=== PATIENT | female | born 1990 | race Caucasian/White ===

== ENCOUNTER 2019-11-28 21:30 | Emergency (ER) | payer OTHER, SELFPAY ==
[2019-11-28 21:31] VITALS: BP 142/85; PULSE 74; RESP 16; TEMP 36.9; O2SAT 98; BMI 21.2
--- NOTE | 2019-11-28 21:49 | ED.VISSUMM ---
- ER Visit Summary Date of Service: 11/28/19 Chief Complaint: Head injury History of Present Illness: The patient is a 28 F who presents with a head injury that occurred yesterday. Patient states she slipped and fell and hit the left side of her head. Patient denies any loss of consciousness. Patient denies any paresthesias or weakness. Patient states her headache has been persistent today. Patient describes her pain as throbbing. Patient states the pain is localized to the left side of her head. Patient admits to some mild neck pain. Patient denies any back pain. Patient denies any other injuries. Physical Examination: Vital signs are stable. Patient is afebrile. Patient is in no acute distress. Cranial nerves II through XII are intact. Strength is 5/5 bilateral in the upper and lower extremities. There are no sensory deficits noted. Deep tendon reflexes are 2+/4 bilaterally in the upper and lower extremities. [id number] and ttjm-hp-[id number] are intact. Heart was regular rate and rhythm. Lungs are clear and equal bilaterally. Abdomen is soft and nontender. There is some mild tenderness over the left parietal area and left upper cervical paraspinal muscles. There is no midline tenderness. There is no bony crepitance or step-off. There is no tenderness of the thoracic or lumbar spine. Emergency Department Course and Treatment: Since the patient has normal neurologic exam, I do not feel a head CT is necessary at this time. Patient was instructed to take Tylenol or Motrin as needed for pain. Patient was instructed to drink plenty of fluids. Patient was instructed to follow-up with her primary care physician in 5 to 7 days. Patient understood and was agreeable with the plan. All questions were answered. Disposition: Discharge home Impression: Concussion This note was generated with [employer] dictation software. It may contain incorrect words, spelling, and punctuation that were not noted in review of the chart prior to signing ED Disposition - Plan for ED Patient: Disposition: Home or Assisted Living Diagnosis: Concussion Instructions: CONCUSSION, No Wake Up Referrals: Prakash Sanchez PA [Primary Care Provider] - 3-5 Days
== END 2019-11-28 22:01 | disposition home or self-care (01) ==
PROVIDERS: Emergency Provider Emergency Medicine; PCP Physician Assistant
DX: S06.0X0A Concussion without loss of consciousness, initial encounter (principal); W01.0XXA Fall on same level from slipping, tripping and stumbling without subsequent striking against object, initial encounter; Y93.9 Activity, unspecified; Y92.9 Unspecified place or not applicable
CPT/HCPCS: 99282

== ENCOUNTER 2021-04-05 19:15 | Observation (INO) | payer OTHER, SELFPAY ==
[2021-04-05 19:30] VITALS: BP 128/74; PULSE 72; PULSE 83; TEMP 36.8; O2SAT 100
[2021-04-05] MEDS: miSOPROStol 25 MCG TABLET VAGINAL (19:50)
[2021-04-05 19:53] LABS: Absolute Lymphocyte Count 1.73 X10^3/uL (0.83-4.51); Absolute Neutrophil Count 6.5 X10^3/uL (2.0-7.7); Basophil# 0.03 X10^3/uL; Basophil% 0.3 % (0-1); Eosinophil# 0.05 X10^3/uL; Eosinophils% 0.5 % (0-5); Hematocrit 35.2 % (37-47); Hemoglobin 11.9 g/dL (12.0-15.0); Lymphocyte # 1.73 X10^3/ul (0.83-4.51); Lymphocyte % 18.8 % (19-41); Mean Corp Hgb Conc 33.8 g/dL (32-36); Mean Corpuscular Hgb 32.7 pg (27.0-32.0); Mean Corpuscular Volume 96.7 fL (81-99); Mean Platelet Vol. 10.1 fl (6.2-12.0); Monocyte# 0.85 X10^3/uL; Monocyte% 9.2 % (0-10); NRBC Flagged by Analyzer 0 % (0-5); Neutrophil # 6.48 X10^3/uL (2.7-7.7); Neutrophil % 70.3 % (47-70); Platelet Count 194 K/mm3 (150-450); Red Blood Count 3.64 M/mm3 (4.2-5.4); White Blood Count 9.2 K/mm3 (4.4-11.0)
[2021-04-05 20:06] VITALS: BMI 26.2
--- NOTE | 2021-04-05 21:10 | NURSING ---
Pt received covid vaccine x2 doses per report.
[2021-04-06] VITALS (14 sets, daily range): BP systolic 110–142; BP diastolic 58–90; PULSE 63–93; TEMP 36.1–37.4; O2SAT 97–99
[2021-04-06] MEDS: miSOPROStol 25 MCG TABLET VAGINAL ×2 (00:01→04:13)
--- NOTE | 2021-04-06 08:57 | PCM.PN.OB ---
Subjective Subjective Patient seen at bedside. Resting comfortably. Reports mild cramping. Got some sleep through the night. Discussed placement of hoffman bulb and plans for induction. Questions answered. Objective Data Objective Data Vital Signs: Vital Signs Temp Pulse BP Pulse Ox 98.4 F 72 118/68 99 04/06/21 07:12 04/06/21 07:12 04/06/21 07:12 04/06/21 07:12 Weight: 153 lb Body Mass Index (BMI) 26.2 Intake & Output: Intake and Output for Last 24 Hours 04/04/21 04/05/21 04/06/21 23:59 23:59 23:59 Intake Total 1000 / 1000 Balance 1000 / 1000 Lab / Micro Data Result Diagrams: 04/05/21 19:44 Labs: Laboratory Results - last 24 hr 04/05/21 04/05/21 04/05/21 19:44 19:44 19:44 WBC 9.2 RBC 3.64 L Hgb 11.9 L Hct 35.2 L MCV 96.7 MCH 32.7 H MCHC 33.8 RDW Std Deviation 46.0 H RDW Coeff of Paresh 13.0 Plt Count 194 MPV 10.1 Immature Gran % (Auto) 0.900 Neut % (Auto) 70.3 H Lymph % (Auto) 18.8 L [place] % (Auto) 9.2 Eos % (Auto) 0.5 Baso % (Auto) 0.3 Absolute Neuts (auto) 6.5 Absolute Lymphs (auto) 1.73 Nucleated RBC % 0 Blood Type A NEGATIVE Cancelled ABO/Rh Cancelled A1 Subgroup Cancelled A1 Antigen Typing Cancelled Rho(D) Tech Interpret Cancelled Antibody Screen TNP NEGATIVE ROS Eyes Eyes: Denies blurry vision, change in vision or spots in vision ENT HEENT: Denies dizziness or headache(s) Cardiovascular Cardiovascular: Denies abdominal pain, chest pain or dyspnea Respiratory/Chest Respiratory/Chest: Denies cough, dyspnea, shortness of breath at rest or shortness of breath with exertion Gastrointestinal Gastrointestinal: Denies abdominal pain, diarrhea or vomiting Genitourinary Genitourinary: Denies change in urinary stream, difficulty urinating or dysuria Musculoskeletal Musculoskeletal: Reports none Integumentary Integumentary: Denies rash Neurologic Neurologic: Denies dizziness, headache(s), memory loss or weakness Psychiatric Psychiatric: Reports none Physical Exam Const alert and no apparent distress General Appearance: cooperative and comfortable Exam Limitations: no limitations HEENT normocephalic Eyes General Eye: normal appearance of both eyes Neck full ROM General: normal visual inspection Chest Chest: symmetrical chest wall rise Resp normal respiratory effort and normal air movement Effort and Inspection: symmetric chest movement Auscultation: clear to auscultation bilaterally Cardio regular rate and regular rhythm GI normal to inspection, nondistended, normoactive bowel sounds Back/Spine normal ROM Extremity full ROM and no calf tenderness General Extremity: normal exam except as noted Skin no rashes or lesions noted Neuro CN's II-XII intact bilaterally Psych mental status grossly normal NST FHR Rate Baby A Baseline: 120 Variability:: Moderate Accelerations:: 15 x 15 Decelerations:: None NST Reactive:: Yes FHR Category:: Category I Uterine Activity:: occasional Assessment & Plan (1) Encounter for induction of labor: (2) 39 weeks gestation of : (3) Elevated AFP: PLAN: Category 1 tracing NST reactive Placement of Hoffman bulb without difficulty Start Pitocin IV and titrate per policy Anticipate Dr. Torres updated and is collaborating physician
[2021-04-06] MEDS: 0.9% Normal Saline Single 100 ML IV.SOLN. INTRA-UTER (09:00)
[2021-04-06] MEDS: Oxytocin 30 units/NS 500 ml 30 UNITS/500 ML IV.SOLN IV (09:15)
[2021-04-06] MEDS: Lactated Ringers 1,000 ML 50 ML IV (09:15)
--- NOTE | 2021-04-06 14:39 | PCM.HP.OB ---
HPI - General General Date of Admission: 04/05/21 HPI Narrative SHANTI MCDOWELL, is a 30 F at 3. who presents at 39.1 weeks gestation for induction of labor for an elevated AFP during . Maternal Data Information STEFFANY Calculator Estimated Delivery Date Method Current WG Current Estimate 04/11/21 Manual 39w 2d PFSH PFSH Home Medications 04/05/21 [History Last Taken 04/05/21] aspirin [Baby Aspirin] 162 mg PO DAILY 04/05/21 [History Last Taken 04/05/21] ferrous sulfate [Iron (ferrous sulfate)] 325 mg QODAY 04/05/21 [History Last Taken 04/05/21] Allergy/AdvReac Type Severity Reaction Status Date / Time No Known Allergies Allergy Verified 04/05/21 20:07 Social History Smoking Status: Never smoker History Elective abortions Hx Para 0 Spontaneous abortions Hx # Term Pregnancies Ectopic pregnancies Hx # Pregnancies Multiple births # of living children NST FHR Rate Baby A Baseline: 125 Variability:: Moderate Accelerations:: 15 x 15 Decelerations:: None NST Reactive:: Yes FHR Category:: Category I Uterine Activity:: irregular/occasional ROS Eyes Eyes: Denies blurry vision, change in vision or spots in vision ENT HEENT: Denies dizziness or headache(s) Cardiovascular Cardiovascular: Denies abdominal pain, chest pain or dyspnea Respiratory/Chest Respiratory/Chest: Denies cough, dyspnea, shortness of breath at rest or shortness of breath with exertion Gastrointestinal Gastrointestinal: Denies abdominal pain, diarrhea or vomiting Genitourinary Genitourinary: Denies change in urinary stream, difficulty urinating or dysuria Musculoskeletal Musculoskeletal: Reports none Integumentary Integumentary: Denies rash Neurologic Neurologic: Denies dizziness, headache(s), memory loss or weakness Psychiatric Psychiatric: Reports none Vital Signs Vital Signs Vital Signs: 04/05/21 19:29 04/05/21 19:30 04/06/21 00:00 Temperature 98.2 F 98.1 F Temperature Source Temporal Temporal Pulse Rate 83 80 Blood Pressure 128/74 H 139/65 H BP Systolic 128 139 BP Diastolic 74 65 Pulse Ox 100 04/06/21 04:08 04/06/21 06:34 04/06/21 07:12 Temperature 97.5 F L 97.0 F L 98.4 F Temperature Source Temporal Temporal Temporal Pulse Rate 69 63 72 Blood Pressure 142/69 H 115/71 118/68 BP Systolic 142 115 118 BP Diastolic 69 71 68 Pulse Ox 98 99 04/06/21 09:21 04/06/21 10:54 04/06/21 11:56 Temperature Temperature Source Pulse Rate 93 70 71 Blood Pressure 137/90 H 120/61 130/58 H BP Systolic 137 120 130 BP Diastolic 90 61 58 Pulse Ox 98 04/06/21 13:01 04/06/21 14:06 Temperature 99.2 F H Temperature Source Temporal Pulse Rate 76 73 Blood Pressure 131/66 H 129/69 H BP Systolic 131 129 BP Diastolic 66 69 Pulse Ox 99 Weight Weight: 153 lb Body Mass Index (BMI) 26.2 Physical Exam Const alert, oriented x3 and no apparent distress General Appearance: cooperative Orientation / Consciousness: awake Exam Limitations: no limitations HEENT normocephalic Head and Scalp: normal to inspection Eyes General Eye: normal appearance of both eyes Neck full ROM and no lymphadenopathy Lymph Lymphatic: no lymphadenopathy noted Chest inspection of chest normal Resp normal respiratory effort, normal air movement and clear to auscultation bilaterally Effort and Inspection: able to speak in complete sentences and symmetric chest movement Cardio regular rate and regular rhythm GI normal to inspection, nondistended, normoactive bowel sounds Manual OB Exam: presentation cephalic, dilated 4, effaced 80 and station 0 Amniotic Fluid: clear amniotic fluid Back/Spine normal ROM Extremity full ROM and no calf tenderness Skin no rashes or lesions noted General Skin Exam: no breakdown Neuro oriented x3 and CN's II-XII intact bilaterally Psych mental status grossly normal and thought process normal Labs Labs Labs: Blood Type A NEGATIVE Antibody Screen NEGATIVE Hct 35.2 % (37-47) L Hgb 11.9 g/dL (12.0-15.0) L Rubella- Immune HB neg HC neg HIV- NR GBS neg Assessment & Plan (1) Elevated AFP: (2) 39 weeks gestation of : (3) Encounter for induction of labor: PLAN: Admit to labor and delivery for induction of labor Cytotec 25 mcg PO every 4 hours Croft bulb placement in the AM GBS negative Dr. Torres aware of induction and is collaborating physician
--- NOTE | 2021-04-06 14:44 | PN.OBGYN_ITS ---
Subjective Subjective Patient feeling contractions but rating them as mild. Croft bulb came out. Objective Data Objective Data CE-3/50/-3 per nursing Vital Signs: Vital Signs Temp Pulse BP Pulse Ox 99.2 F H 73 129/69 H 99 04/06/21 13:01 04/06/21 14:06 04/06/21 14:06 04/06/21 13:01 Weight: 153 lb Body Mass Index (BMI) 26.2 Intake & Output: Intake and Output for Last 24 Hours 04/04/21 04/05/21 04/06/21 23:59 23:59 23:59 Intake Total 1026.5 / 1026.5 Balance 1026.5 / 1026.5 Lab / Micro Data Result Diagrams: 04/05/21 19:44 Labs: Laboratory Results - last 24 hr 04/05/21 04/05/21 04/05/21 19:44 19:44 19:44 WBC 9.2 RBC 3.64 L Hgb 11.9 L Hct 35.2 L MCV 96.7 MCH 32.7 H MCHC 33.8 RDW Std Deviation 46.0 H RDW Coeff of Paresh 13.0 Plt Count 194 MPV 10.1 Immature Gran % (Auto) 0.900 Neut % (Auto) 70.3 H Lymph % (Auto) 18.8 L [place] % (Auto) 9.2 Eos % (Auto) 0.5 Baso % (Auto) 0.3 Absolute Neuts (auto) 6.5 Absolute Lymphs (auto) 1.73 Nucleated RBC % 0 Blood Type A NEGATIVE Cancelled ABO/Rh Cancelled A1 Subgroup Cancelled A1 Antigen Typing Cancelled Rho(D) Tech Interpret Cancelled Antibody Screen TNP NEGATIVE NST FHR Rate Baby A Baseline: 120 Variability:: Moderate Accelerations:: 15 x 15 Decelerations:: None NST Reactive:: Yes FHR Category:: Category I Uterine Activity:: 2-4 minutes, palpate mild and relaxed in between Assessment & Plan (1) Encounter for induction of labor: (2) 39 weeks gestation of : (3) Elevated AFP: PLAN: Pitocin IV to titrate per policy Position changes Patient to ambulate Epidural when indicated Anticipate AROM Dr. Torres updated on patient's status
--- NOTE | 2021-04-06 20:45 | PCM.PN.OB ---
Subjective Subjective Patient seen at bedside. Denies any pain. She feels mild cramping. Positive movement. Objective Data Objective Data CE- 3/50/-3 No change Vital Signs: Vital Signs Temp Pulse BP Pulse Ox 99.4 F H 83 110/75 99 04/06/21 19:19 04/06/21 19:19 04/06/21 19:19 04/06/21 19:19 Weight: 153 lb Body Mass Index (BMI) 26.2 Intake & Output: Intake and Output for Last 24 Hours 04/04/21 04/05/21 04/06/21 23:59 23:59 23:59 Intake Total 1063.5 / 1063.5 Balance 1063.5 / 1063.5 Lab / Micro Data Result Diagrams: 04/05/21 19:44 Labs: Laboratory Results - last 24 hr 04/05/21 04/05/21 19:44 19:44 Blood Type A NEGATIVE Cancelled ABO/Rh Cancelled A1 Subgroup Cancelled A1 Antigen Typing Cancelled Rho(D) Tech Interpret Cancelled Antibody Screen TNP NEGATIVE ROS Eyes Eyes: Denies blurry vision, change in vision or spots in vision ENT HEENT: Denies dizziness or headache(s) Cardiovascular Cardiovascular: Denies abdominal pain, chest pain or dyspnea Respiratory/Chest Respiratory/Chest: Denies cough, dyspnea, shortness of breath at rest or shortness of breath with exertion Gastrointestinal Gastrointestinal: Denies abdominal pain, diarrhea or vomiting Genitourinary Genitourinary: Denies change in urinary stream, difficulty urinating or dysuria Musculoskeletal Musculoskeletal: Reports none Integumentary Integumentary: Denies rash Neurologic Neurologic: Denies dizziness, headache(s), memory loss or weakness Psychiatric Psychiatric: Reports none Physical Exam Const alert and no apparent distress General Appearance: cooperative and comfortable Exam Limitations: no limitations HEENT normocephalic Eyes General Eye: normal appearance of both eyes Neck full ROM General: normal visual inspection Chest Chest: symmetrical chest wall rise Resp normal respiratory effort and normal air movement Effort and Inspection: symmetric chest movement Auscultation: clear to auscultation bilaterally Cardio regular rate and regular rhythm GI normal to inspection, nondistended, normoactive bowel sounds Back/Spine normal ROM Extremity full ROM and no calf tenderness General Extremity: normal exam except as noted Skin no rashes or lesions noted Neuro CN's II-XII intact bilaterally Psych mental status grossly normal NST FHR Rate Baby A Baseline: 125 Variability:: Moderate Accelerations:: 15 x 15 Decelerations:: None NST Reactive:: Yes FHR Category:: Category I Uterine Activity:: 2-5 minutes, palpate mild and relaxed in between Assessment & Plan (1) 39 weeks gestation of : (2) Encounter for induction of labor: PLAN: Category 1 tracing NST reactive Patient has been here on unit over 24 hours since start of induction CE- (no change since Croft bulb came out at 0945 this morning) Pitocin 16 mu/min Patient questioning if she can go home and return for an induction closer to [address] Torres updated on patient's status. Plan of care is to discharge patient home at this time. She will return to office on Tuesday for NST and CE. New plan of care will be discussed at that time Labor precautions given to patient All questions answered and patient and agree with plan of care
--- NOTE | 2021-04-06 21:11 | NURSING ---
[facility]
== END 2021-04-06 21:15 | disposition home or self-care (01) ==
LOC: WP 04-06 21:05 → WPOUT 04-07 07:43 → WP 04-07 08:13
PROVIDERS: Admitting Provider Obstetrics & Gynecology; PCP Physician Assistant; Visit Provider Obstetrics & Gynecology
DX: O26.893 Other specified pregnancy related conditions, third trimester (principal); Z3A.39 39 weeks gestation of pregnancy; R77.2 Abnormality of alphafetoprotein; Z53.8 Procedure and treatment not carried out for other reasons
CPT/HCPCS: 59200; 59025; 59050; 85025; 86850; 86900; 86901; J7120

== ENCOUNTER 2021-04-07 14:45 | Inpatient (IN) | payer OTHER, SELFPAY ==
[2021-04-07] VITALS (28 sets, daily range): BP systolic 103–145; BP diastolic 51–81; PULSE 75–116; TEMP 35.6–37.2; O2SAT 90–100; BMI 26.1
[2021-04-07] MEDS: Lactated Ringers 1,000 ML 50 ML IV (16:20)
[2021-04-07 16:46] LABS: Absolute Lymphocyte Count 1.66 X10^3/uL (0.83-4.51); Absolute Neutrophil Count 9.7 X10^3/uL (2.0-7.7); Basophil# 0.05 X10^3/uL; Basophil% 0.4 % (0-1); Eosinophil# 0.05 X10^3/uL; Eosinophils% 0.4 % (0-5); Hemoglobin 13.7 g/dL (12.0-15.0); Lymphocyte # 1.66 X10^3/ul (0.83-4.51); Lymphocyte % 13.1 % (19-41); Mean Corp Hgb Conc 34.3 g/dL (32-36); Mean Corpuscular Hgb 32.5 pg (27.0-32.0); Mean Platelet Vol. 10.1 fl (6.2-12.0); Monocyte# 1.05 X10^3/uL; Monocyte% 8.3 % (0-10); NRBC Flagged by Analyzer 0 % (0-5); Neutrophil # 9.74 X10^3/uL (2.7-7.7); Neutrophil % 77.2 % (47-70); Platelet Count 203 K/mm3 (150-450); RBC Distribution Width CV 13.2 % (11.6-14.6); RBC Distribution Width SD 45.5 fl (35.1-43.9); Red Blood Count 4.21 M/mm3 (4.2-5.4); White Blood Count 12.6 K/mm3 (4.4-11.0)
[2021-04-07] MEDS: Oxytocin 30 units/NS 500 ml 30 UNITS/500 ML IV.SOLN IV (17:00)
--- NOTE | 2021-04-07 17:19 | PCM.HP.OB ---
HPI - General General Date of Admission: 04/07/21 HPI Narrative SHANTI MCDOWELL, is a 30 F who presents for induction of labor. She reports increased ctxs & decreased FM. Maternal Data Information STEFFANY Calculator Estimated Delivery Date Method Current WG Current Estimate 04/11/21 Manual 39w 3d PFSH PFSH Home Medications 04/05/21 [History Last Taken 04/05/21] aspirin 162 mg PO DAILY 04/05/21 [History Last Taken 04/05/21] ferrous sulfate [Iron (ferrous sulfate)] 325 mg QODAY 04/05/21 [History Last Taken 04/05/21] Allergy/AdvReac Type Severity Reaction Status Date / Time No Known Allergies Allergy Verified 04/05/21 20:07 Social History Smoking Status: Never smoker History Elective abortions Hx Para 0 Spontaneous abortions Hx # Term Pregnancies Ectopic pregnancies Hx # Pregnancies Multiple births # of living children NST FHR Rate Baby A Variability:: Moderate Accelerations:: 15 x 15 Decelerations:: None FHR Category:: Category I Uterine Activity:: Q 5-6 minutes Vital Signs Vital Signs Vital Signs: 04/07/21 16:11 Temperature 99.0 F Pulse Rate 90 Blood Pressure 124/71 H BP Systolic 124 BP Diastolic 71 Weight Weight: 152 lb 1.903 oz Body Mass Index (BMI) 26.1 Physical Exam Const alert, oriented x3 and no apparent distress GI soft to palpation, non-tender and non-distended Inspection: gravid external exam normal Narrative: cvx - 3/80/-2 Labs Labs Labs: Blood Type A NEGATIVE Antibody Screen NEGATIVE Hct 40.0 % (37-47) Hgb 13.7 g/dL (12.0-15.0) See [facility] H&P Assessment & Plan (1) Encounter for induction of labor: COMMENT: 39&3 PLAN: Admit to L&D Proceed with induction for elevated AFP & decreased FM - patient counseled on R/B/A Induction - on pitocin, amniotomy performed for clear fluid GBS negative COVID vaccinated Pain - epidural as desired EFW - less than 4500g, patient with adequate pelvis Routine care
[2021-04-07] MEDS: Lactated Ringers 500 ML 999 ML IV ×2 (20:19→22:41)
[2021-04-07] MEDS: fentaNYL-bupivacaine (epidural) 100 ML BAG EPIDURAL (21:20)
[2021-04-08] VITALS (27 sets, daily range): BP systolic 110–135; BP diastolic 46–83; PULSE 70–97; RESP 14–18; TEMP 36.1–37; O2SAT 16–100
[2021-04-08] MEDS: Lactated Ringers 1,000 ML 200 ML IV ×2 (00:57→06:05)
[2021-04-08] MEDS: Ondansetron 4 MG/2 ML Vial IV (00:57)
[2021-04-08] MEDS: fentaNYL-bupivacaine (epidural) 100 ML BAG EPIDURAL (01:59)
--- NOTE | 2021-04-08 05:45 | PN.OBGYN_ITS ---
Subjective Subjective Patient comfortable with epidural. She doesn't feel anything with pushing. Objective Data Objective Data Vital Signs: Vital Signs Temp Pulse Resp BP Pulse Ox 97.8 F 90 18 124/56 H 100 04/08/21 05:17 04/08/21 05:17 04/08/21 05:17 04/08/21 05:17 04/08/21 05:17 Oxygen Delivery Method Room Air Weight: 152 lb 1.903 oz Body Mass Index (BMI) 26.1 Intake & Output: Intake and Output for Last 24 Hours 04/06/21 04/07/21 04/08/21 23:59 23:59 23:59 Intake Total 1292.38 / 1292.38 791.41 / 791.41 Balance 1292.38 / 1292.38 791.41 / 791.41 Lab / Micro Data Result Diagrams: 04/07/21 16:20 Labs: Laboratory Results - last 24 hr 04/07/21 04/07/21 16:20 16:20 WBC 12.6 H RBC 4.21 Hgb 13.7 Hct 40.0 MCV 95.0 MCH 32.5 H MCHC 34.3 RDW Std Deviation 45.5 H RDW Coeff of Paresh 13.2 Plt Count 203 MPV 10.1 Immature Gran % (Auto) 0.600 Neut % (Auto) 77.2 H Lymph % (Auto) 13.1 L [place] % (Auto) 8.3 Eos % (Auto) 0.4 Baso % (Auto) 0.4 Absolute Neuts (auto) 9.7 H Absolute Lymphs (auto) 1.66 Nucleated RBC % 0 Blood Type A NEGATIVE Antibody Screen POSITIVE H Antibody Identification ANTI-D Physical Exam Narrative: cvx - C/C/+1 with some caput NST FHR Rate Baby A Baseline: 120 Variability:: Moderate Accelerations:: 15 x 15 Decelerations:: Late (Just had one late deceleration) FHR Category:: Category II Uterine Activity:: Q 3-4 minutes Assessment & Plan (1) Encounter for induction of labor: COMMENT: 39&4 PLAN: Patient pushing for 3 hours. Not currently feeling any pressure wi th pushing. Epidural stopped by RN after talking to anesthesia. Will increase pitocin to 12 mU. Plan to resume pushing in 10-20 minutes.
--- NOTE | 2021-04-08 07:27 | OP.PCM_ITS ---
Maternal Data Information STEFFANY Calculator Estimated Delivery Date Method Current WG Current Estimate 04/11/21 Manual 40w 2d Details Operative Information Date of Procedure: 04/08/21 Pre-Operative Diagnosis: Failure to descend Post-Operative Diagnosis: Same Indications for : Failure of Descent Indications Narrative: Patient was complete for 5 hours and had been pushing for 4 hours with no descent. Decision made to proceed with section. Classification: BLANKA Procedure Type: low transverse Type of Anesthesia: Epidural Antibiotic Given: Ancef 2 grams IV x1 and Zithromax 500 mg/5 mL X1 Estimated Blood Loss: 900ml Fluids Replaced: 1500ml Procedure Start Time: 07:59 Procedure Stop Time: 09:10 Time of Delivery: 08:05 Findings Description of Procedure: The patient was taken to the operating room where epidural anesthesia was dosed.. She was prepped and draped in the dorsal supine position with a leftward tilt. A Pfannenstiel skin incision was made approximately 2 cm above the symphysis pubis and carried through to underlying layer fascia with the scalpel. The fascia was incised incised in the midline and extended laterally with the Stewart scissors. The rectus muscles were in the midline and the peritoneum was entered carefully and bluntly. The peritoneal incision was stretched and the bladder blade was placed. The uterine incision was made in a low transverse fashion with the scalpel and extended superiorly and inferiorly with blunt dissection. The 's head was brought to the incision in the flexed position and delivered without difficulty. The remainder of the infant was delivered with gentle traction and fundal pressure in the standard fashion. The mouth and nares were bulb suctioned. The cord was clamped and cut as the infant was stimulated. Cord clamping was delayed. The was handed off to the waiting nursing staff. The placenta was delivered with fundal massage and gentle traction in the stand jose martin fashion. The uterus was exteriorized and cleared of all clots and debris. The uterine incision was closed with 2 sutures #1 Vicryl in a running locked fashion. 3 additional figure of 8 sutures using vicryl were needed on the right side of the uterine incision to obtain excellent hemostasis. Monocryl suture was used in an imbricating fashion. The incision was examined and was found to be hemostatic. The uterus was placed back into the peritoneal cavity and hemostasis was again confirmed. After irrigating darya was placed over the uterine incision as some tissue was denuded. The rectus muscles were examined and any bleeding was Bovie cauterized. The parietal peritoneum was closed with running suture. The surgical teams outer gloves were then changed. The rectus fascia was examined and any bleeding was Bovie cauterized and the rectus fascia was closed with PDS suture in a running standard fashion. The subcutaneous tissue was examining and any bleeding was Bovie cauterized. The subcutaneous tissue was reapproximated with 3-0 Vicryl suture. The skin was closed in a subcuticular fashion. All sponge, lap, and needle counts were correct. The patient was taken to her room for recovery in a stable condition. [employer] - Chelo Preethi Presentation: Positive for Vertex Amniotic Membrane Rupture Type: Artificial Amniotic Fluid Description: Clear Placental Delivery Description: Manual Removal Placenta Disposition: [facility] Cord Vessel Description: 3 Vessels A Gender: Male (1 minute): 8 (5 minute): 9 Delayed Cord Clamping: Yes Complications Complications: None
[2021-04-08] MEDS: Sodium Citrate/Citric Acid 30 ML UDC PO (07:30)
[2021-04-08] MEDS: Cefazolin 2 GM in 0.9% Normal Saline 100 ML IV (07:50)
[2021-04-08] MEDS: Ketorolac 30 MG/ML Syringe IV ×3 (08:33→21:03)
[2021-04-08] MEDS: Oxytocin 30 units/NS 500 ml 30 UNITS/500 ML IV.SOLN 167 UNITS IV (09:30)
[2021-04-08] MEDS: Acetaminophen 500 MG Tablet 1000 MG PO ×3 (11:20→23:16)
--- NOTE | 2021-04-08 12:06 | NURSING ---
new hoffman catheter placed in OR per physician request and blood clots in previous hoffman.
[2021-04-08] MEDS: Lactated Ringers 1,000 ML 100 ML IV (14:00)
--- NOTE | 2021-04-08 16:49 | NURSING ---
Bedside report received from Naman Barry RN. this RN will assume care of this couplet at this time.
[2021-04-08] MEDS: 0.9% Saline Lock 10 ML Syringe IV (21:03)
[2021-04-08] MEDS: Enoxaparin 40 MG/0.4 ML Syringe SC (21:03)
[2021-04-09] MEDS: Ketorolac 30 MG/ML Syringe IV (03:05)
[2021-04-09] MEDS: 0.9% Saline Lock 10 ML Syringe IV (03:06)
[2021-04-09 03:15] VITALS: BP 121/43; PULSE 78; RESP 16; TEMP 36.6; O2SAT 97
[2021-04-09] MEDS: Acetaminophen 500 MG Tablet 1000 MG PO ×4 (05:48→22:35)
[2021-04-09 06:06] LABS: Hematocrit 28.2 % (37-47); Hemoglobin 9.4 g/dL (12.0-15.0); Mean Corp Hgb Conc 33.3 g/dL (32-36); Mean Corpuscular Hgb 32.9 pg (27.0-32.0); Mean Corpuscular Volume 98.6 fL (81-99); Mean Platelet Vol. 9.7 fl (6.2-12.0); Platelet Count 139 K/mm3 (150-450); RBC Distribution Width CV 13.2 % (11.6-14.6); RBC Distribution Width SD 47.2 fl (35.1-43.9); Red Blood Count 2.86 M/mm3 (4.2-5.4); White Blood Count 10.4 K/mm3 (4.4-11.0)
--- NOTE | 2021-04-09 08:08 | PCM.PN.OB ---
Subjective Subjective Pain controlled. Doing well. Objective Data Objective Data Vital Signs: Vital Signs Temp Pulse Resp BP Pulse Ox 97.9 F 78 16 121/43 H 97 04/09/21 03:15 04/09/21 03:15 04/09/21 03:15 04/09/21 03:15 04/09/21 03:15 Oxygen Delivery Method Room Air Weight: 152 lb 1.903 oz Body Mass Index (BMI) 26.1 Intake & Output: Intake and Output for Last 24 Hours 04/07/21 04/08/21 04/09/21 23:59 23:59 23:59 Intake Total 1292.38 / 1292.38 4136.48 / 4136.48 Output Total 650 / 650 350 / 350 Balance 1292.38 / 1292.38 3486.48 / 3486.48 -350 / -350 Lab / Micro Data Result Diagrams: 04/09/21 05:55 Labs: Laboratory Results - last 24 hr 04/08/21 04/09/21 11:05 05:55 WBC 10.4 RBC 2.86 L Hgb 9.4 L Hct 28.2 L MCV 98.6 MCH 32.9 H MCHC 33.3 RDW Std Deviation 47.2 H RDW Coeff of Paresh 13.2 Plt Count 139 L MPV 9.7 Screen NEGATIVE Baby's Blood Type A POSITIVE Baby's DIANE NEGATIVE Physical Exam Const alert, oriented x3 and no apparent distress HEENT normocephalic GI soft to palpation, non-tender and non-distended GI Narrative: fundus firm, mid & below umbilicus Incision - bandage c/d/i other than 1 tiny spot of dried blood Extremity normal to inspection and no calf tenderness Assessment & Plan (1) Delivery by section: COMMENT: POD#1 PLAN: Heme - hb 9.4, mild anemia from acute blood loss, start iron GI - ADAT - no issues Pain - controlled Routine care
[2021-04-09 08:32] VITALS: BP 118/72; PULSE 75; RESP 16; TEMP 36.9; O2SAT 96
[2021-04-09] MEDS: Ibuprofen 600 MG Tablet PO ×3 (08:44→20:41)
[2021-04-09] MEDS: Senna/Docusate Sodium 1 Tablet PO (10:23)
[2021-04-09 14:50] VITALS: BP 117/72; PULSE 77; RESP 16; TEMP 36.9; O2SAT 99
[2021-04-09] MEDS: Ferrous Sulfate 325 MG Tablet PO (14:58)
[2021-04-09 20:38] VITALS: BP 138/70; PULSE 75; RESP 16; TEMP 36.6; O2SAT 98
[2021-04-09] MEDS: Enoxaparin 40 MG/0.4 ML Syringe SC (20:42)
--- NOTE | 2021-04-10 00:14 | NURSING ---
This RN assuming care of patient and at 2300. Report received from Venus ERIC.
[2021-04-10] MEDS: Ibuprofen 600 MG Tablet PO ×2 (02:23→08:12)
[2021-04-10 02:24] VITALS: BP 130/71; PULSE 89; RESP 14; TEMP 36.5
[2021-04-10] MEDS: Acetaminophen 500 MG Tablet 1000 MG PO (05:51)
[2021-04-10 07:32] VITALS: BP 119/77; PULSE 83; RESP 18; TEMP 36.4
[2021-04-10] MEDS: Senna/Docusate Sodium 1 Tablet PO (09:26)
--- NOTE | 2021-04-10 10:39 | PCM.DC.SUM ---
Providers Date of Admission: 04/07/21 Date of Discharge: 04/10/21 Primary Care Physician: JESSI Sharp Reason For Visit: PRIMARY C SECTION Diagnosis Discharge Diagnosis (1) Delivery by section: Status: Acute Plan: Patient for primary C/S. Hospital course uneventful Medications at Discharge Home Medications 04/05/21 ferrous sulfate [Iron (ferrous sulfate)] 325 mg QODAY 04/05/21 oxycodone 5 - 10 mg PO Q4H PRN PRN 5 Days #20 tab 04/10/21 Hospital Course Operations section Summary of Care Provided Hospital Course: Primary C/S. Hospital course uneventful. Physical Exam Narrative Patient seen at bedside. Feeling good. Denies any dizziness, SOB, CP. Ambulating and voiding without difficulty. with support. Desires discharge home today. Const alert, oriented x3 and no apparent distress General Appearance: cooperative Orientation / Consciousness: awake Exam Limitations: no limitations HEENT normocephalic Head and Scalp: normal to inspection Eyes General Eye: normal appearance of both eyes Neck full ROM and no lymphadenopathy Lymph Lymphatic: no lymphadenopathy noted Chest inspection of chest normal Resp normal respiratory effort, normal air movement and clear to auscultation bilaterally Effort and Inspection: able to speak in complete sentences and symmetric chest movement Cardio regular rate and regular rhythm GI normal to inspection, nondistended, normoactive bowel sounds Manual OB Exam: presentation cephalic, dilated 4, effaced 80 and station 0 Amniotic Fluid: clear amniotic fluid Back/Spine normal ROM Extremity full ROM and no calf tenderness Skin no rashes or lesions noted General Skin Exam: no breakdown Neuro oriented x3 and CN's II-XII intact bilaterally Psych mental status grossly normal and thought process normal Weight / BMI Weight Weight: 152 lb 1.903 oz Body Mass Index (BMI) 26.1 ABG / Lab / Microbiology Data Result Diagrams: 04/09/21 05:55 Meaningful Use Info Meaningful Use Diagnoses (Choose all that apply): None applicable Discharge Plan Admission Admit Date/Time: 04/07/21 14:45 Primary Reason for Your Visit: Induction of labor Attending Provider: Carmel Spann Primary Care Provider: Prakash Sanchez Instructions Patient Instructions: After a , C Section Dc Discharge Orders/Prescriptions Prescriptions: New oxycodone 5 mg Tablet 5 - 10 mg PO Q4H PRN PRN (Reason: Pain Score 4-10) 5 Days Qty: 20 RF: 0 Continued ferrous sulfate [Iron (ferrous sulfate)] 325 mg (65 mg iron) Tablet 325 mg QODAY RF: 0 RF: 0 Discontinued aspirin 81 mg Tablet,Chewable 162 mg PO DAILY RF: 0 Referrals / Follow Up: Carmel Spann MD [STAFF PHYSICIAN] - Prakash Sanchez PA [Primary Care Provider] - Disposition Disposition (needs filled in before D/C Order can be placed): Home, Self Care
== END 2021-04-10 11:25 | disposition home or self-care (01) | DRG 787 ==
PROVIDERS: Admitting Provider Obstetrics & Gynecology; PCP Physician Assistant; Visit Provider Obstetrics & Gynecology
DX: O36.8130 Decreased fetal movements, third trimester, not applicable or unspecified (principal); D62 Acute posthemorrhagic anemia; O90.81 Anemia of the puerperium; O32.4XX0 Maternal care for high head at term, not applicable or unspecified; Z79.82 Long term (current) use of aspirin; Z3A.39 39 weeks gestation of pregnancy; Z37.0 Single live birth
CPT/HCPCS: 59025; 59050; 85025; 85027; 85461; 86850; 86870; 86900; 86901; 90384; 99218; 99251; J7120; A4216; G0378; G0463; J2405; J2790

== ENCOUNTER 2023-06-30 09:31 | Inpatient (IN) | payer OTHER, SELFPAY ==
[2023-06-30] VITALS (18 sets, daily range): BP systolic 100–119; BP diastolic 54–76; PULSE 56–86; RESP 11–21; TEMP 36.2–36.7; O2SAT 95–100; BMI 24.5
--- NOTE | 2023-06-30 | FALS_PTH ---
PATIENT: SHANTI MCDOWELL LOC: [facility] U#:[id number] AGE/SX: 32/F ROOM: WP006 RE06/30/[address]: Dr. Carmel Spann MD : 1990 BED: 1 DIS: 07/02/2023 SPEC #: [id number] RECD: 07/01/23 08:56 STATUS: ANGELI REQ #: [id number] LAURO: 06/30/23 00:[address]: Kristie Torres DEPT: SURGICAL PATHOLOGY RECD BY: Maxwell Jackson ENTERED: 07/01/23 08:56 SP TYPE: FALL TUBES OTHR DR: MD Prakash Dubose PA Tissues: Fallopian tube Procedures: Surgery Specimen Level II Comments: @ Ordering doctor for SUII edited from to @ by RGOOD at 07/01/23 153 @ Submitting doctor edited from to @ by RGOOD at 07/01/23 1538 HEADER OPERATION: Tubal ligation PRE-OP DIAGNOSIS: Sterilization TISSUE SUBMITTED: Fallopian tubes MICROSCOPIC DIAGNOSIS Right fallopian tube, salpingectomy: Benign paratubal cyst. Left fallopian tube, salpingectomy: No pathologic change. AM:harvinder 07/04/2023 MICROSCOPIC DESCRIPTION Slides are reviewed. GROSS DESCRIPTION Received in fixative is one container labeled with the patient's name and designated bilateral fallopian tubes, suture in right. The specimen consists of bilateral fallopian tubes including fimbrial ends. The right fallopian tube measures 8.5 cm in length and 0.7 cm in diameter and the left fallopian tube measures 10.0 cm in length and 0.7 cm in diameter. Sections reveal unremarkable cut surfaces. Glass Forming Engineer sections are submitted in two cassettes as follows: 1 - right fallopian tube, 2 - left fallopian tube. / MORENA:harvinder 07/01/2023 TC:4 CPT: 80083 x2
[2023-06-30] MEDS: Lactated Ringers 1,000 ML 999 ML IV (10:55)
[2023-06-30] MEDS: Acetaminophen 500 MG Tablet 1000 MG PO ×2 (11:06→17:29)
[2023-06-30 11:10] LABS: Absolute Lymphocyte Count 1.35 X10^3/uL (0.83-4.51); Absolute Neutrophil Count 6.6 X10^3/uL (2.0-7.7); Basophil# 0.06 X10^3/uL; Basophil% 0.7 % (0-1); Eosinophil# 0.12 X10^3/uL; Eosinophils% 1.4 % (0-5); Hematocrit 34.4 % (37-47); Hemoglobin 11.5 g/dL (12.0-15.0); Lymphocyte # 1.35 X10^3/ul (0.83-4.51); Lymphocyte % 15.6 % (19-41); Mean Corp Hgb Conc 33.4 g/dL (32-36); Mean Corpuscular Hgb 32.2 pg (27.0-32.0); Mean Corpuscular Volume 96.4 fL (81-99); Mean Platelet Vol. 10.8 fl (6.2-12.0); Monocyte# 0.53 X10^3/uL; Monocyte% 6.1 % (0-10); NRBC Flagged by Analyzer 0 % (0-5); Neutrophil # 6.56 X10^3/uL (2.7-7.7); Neutrophil % 75.6 % (47-70); Platelet Count 153 K/mm3 (150-450); RBC Distribution Width CV 13.4 % (11.6-14.6); RBC Distribution Width SD 46.9 fl (35.1-43.9); Red Blood Count 3.57 M/mm3 (4.2-5.4); White Blood Count 8.7 K/mm3 (4.4-11.0)
[2023-06-30] MEDS: Sodium Citrate/Citric Acid 30 ML UDC PO (11:53)
[2023-06-30] MEDS: Cefazolin 2 GM in 0.9% Normal Saline (100mL Bag) 100 ML IV (12:00)
[2023-06-30 12:02] LABS: Syphilis Antibodies Non-reactive
--- NOTE | 2023-06-30 12:10 | PCM.HP.OB ---
HPI - General General Date of Admission: 06/30/23 HPI Narrative SHANTI MCDOWELL, is a 32 F who presents for repeat . Maternal Data Information Final STEFFANY: 07/07/23 Gestational age: 39 weeks [facility] Medical History Anxiety Depression HPV (human papilloma virus) infection depression Home Medications 1 tab 04/05/21 [History Last Taken 04/05/21] ferrous sulfate 325 mg (65 mg iron) tablet (Iron (ferrous sulfate)) 325 mg PO QODAY anemia 04/05/21 [History Last Taken 04/05/21] sertraline 50 mg tablet mg depression 06/30/23 [History Last Taken Unknown] Allergy/AdvReac Type Severity Reaction Status Date / Time No Known Allergies Allergy Verified 06/30/23 10:29 Surgical History History of surgery Social History Smoking Status: Never smoker History Elective abortions Hx Para 1 Spontaneous abortions Hx # Term Pregnancies Ectopic pregnancies Hx # Pregnancies Multiple births # of living children Vital Signs Vital Signs Vital Signs: 06/30/23 10:30 Temperature 97.2 F L Temperature Source Temporal Pulse Rate 80 Respiratory Rate 16 Blood Pressure 106/72 Blood Pressure Mean 83 Blood Pressure Source Monitor Blood Pressure Position Semi-Fowlers Blood Pressure Location Right Arm Pulse Ox 99 Oxygen Delivery Method Room Air Weight Weight: 142 lb 9.6 oz Body Mass Index (BMI) 24.5 Labs Labs Labs: Blood Type A NEGATIVE Antibody Screen POSITIVE Hct 34.4 % (37-47) L Hgb 11.5 g/dL (12.0-15.0) L Syphilis Total Ab Non-reactive see [facility] H&P Assessment & Plan (1) Request for sterilization: (2) Previous delivery, antepartum: (3) Anemia affecting : QUALIFIERS: Trimester: third trimester Qualified Code(s): O99.013 - Anemia complicating , third trimester PLAN: Plan Admit to L&D Discussed R/B/A and patient wishes to proceed with repeat with bilateral salpingectomy. Reviewed risks of regret & failure in regards to sterilization.
--- NOTE | 2023-06-30 13:04 | OP.PCM_ITS ---
Maternal Data Information Final STEFFANY: 07[birth year]07/23 Gestational age: 39 weeks Details Operative Information Date of Procedure: 06/30/23 Pre-Operative Diagnosis: (1) Prior section (2) Sterilization request Post-Operative Diagnosis: Same Indications for : Repeat Elective and Desires elective sterilization Indications Narrative: The patient was taken to the operating room where spinal anesthesia was placed & found to be adequate. She was prepped and draped in the dorsal supine position with a leftward tilt. A Pfannenstiel skin incision was made approximately 2 cm above the symphysis pubis and carried through to the underlying fascia with the scalpel. The fascia was incised incised in the midline and extended laterally with the Stewart scissors. The rectus muscles were in the midline and the peritoneum was entered carefully and bluntly. The peritoneal incision was s tretched and the bladder blade was inserted. The uterine incision was made in a low transverse fashion with the metzenbaum scissors and extended superiorly and inferiorly with blunt dissection. The infant's head was brought to the incision in the flexed position and delivered without difficulty. The head was gently guided to allow delivery of the anterior and posterior shoulders. The body then delivered with fundal pressure in the standard fashion. The 3VC cord was clamped and cut in delayed fashion. The infant was handed off to the waiting pediatric rn. The placenta was delivered with fundal massage and gentle traction in the standard fashion. The uterus was exteriorized and cleared of clots and debris. The uterine incision was closed with #1 Vicryl suture in a running locked fashion. Monocryl suture was used in an imbricating fashion. The incision was examined and was found to be hemostatic. The uterus was returned to the abdominal cavity. Attention was turned to the fallopian tubes. The right fallopian tube was grasped, cauterized & cut with the ligasure several times until the entire tube was removed. Excellent hemostasis was confirmed & Ketan was placed over the tubal excision site. Then the left fallopian tube was grasped, cauterized & cut with the ligasure several times until the entire tube was removed. Excellent hemostasis was confirmed & Ketan was placed over the tubal excision site. After irrigating Ketan was placed over the uterine incision as some areas were denuded (but hemostatic). The rectus muscle was examined and any bleeding was Bovie cauterized. The fascia was closed with PDS suture in a running standard fashion. The subcutaneous tissue was examining and any bleeding was Bovie cauterized. The subcutaneous tissue was reapproximated with interrupted sutures. The skin was closed in a subcuticular fashion by the COMMERCIAL ESCROW OFFICER while I was present in the labor & delivery unit. The remainder of the procedure was performed by me with assistance. All sponge, lap, and needle counts were correct. The patient was taken to her room for recovery in a stable condition. Classification: Scheduled Procedure Type: bilateral salpingectomy system trainer #1: Caryn Jordan Type of Anesthesia: Spinal Antibiotic Given: Ancef 2 grams IV x1 Drain: Croft to straight drain Estimated Blood Loss: 700ml Fluids Replaced: 550ml Procedure Start Time: 12:25 Procedure Stop Time: 13:04 Findings Description of Procedure: Normal maternal uterus (with very thin lower uterine segment) and adnexa Presentation: Positive for Vertex Amniotic Membrane Rupture Type: Artificial Amniotic Fluid Description: Clear Placental Delivery Description: Expressed Placenta Disposition: [facility] Specimen(s) Sent to Pathology: bilateral segments of fallopian tubes Cord Vessel Description: 3 Vessels Cord Entanglement: None (1 minute): 9 (5 minute): 9 Delayed Cord Clamping: Yes Complications Complications: None
[2023-06-30] MEDS: Oxytocin 15 Units/NS 250ml 15 UNITS/250 ML IV.SOLN 83 UNITS IV (13:30)
[2023-06-30] MEDS: Ketorolac 30 MG/ML Syringe IV ×2 (14:25→19:38)
[2023-06-30] MEDS: 0.9% Saline Lock 10 ML Syringe IV (19:39)
[2023-07-01] VITALS: BP 105/74; PULSE 74; RESP 15; TEMP 36.4; O2SAT 98
[2023-07-01] MEDS: Acetaminophen 500 MG Tablet 1000 MG PO ×5 (00:06→23:45)
[2023-07-01] MEDS: 0.9% Saline Lock 10 ML Syringe IV (01:28)
[2023-07-01] MEDS: Ketorolac 30 MG/ML Syringe IV ×2 (01:29→07:56)
[2023-07-01 04:10] VITALS: BP 112/72; PULSE 69; RESP 15; TEMP 36.4; O2SAT 100
[2023-07-01 04:20] LABS: Hematocrit 34.5 % (37-47); Hemoglobin 11.5 g/dL (12.0-15.0); Mean Corp Hgb Conc 33.3 g/dL (32-36); Mean Corpuscular Hgb 32.4 pg (27.0-32.0); Mean Corpuscular Volume 97.2 fL (81-99); Mean Platelet Vol. 10.3 fl (6.2-12.0); Platelet Count 133 K/mm3 (150-450); RBC Distribution Width CV 13.3 % (11.6-14.6); Red Blood Count 3.55 M/mm3 (4.2-5.4); White Blood Count 13.5 K/mm3 (4.4-11.0)
--- NOTE | 2023-07-01 07:10 | PN.OBGYN_ITS ---
Subjective Subjective Patient seen at bedside. Ambulating and voiding without difficulty. Denies headache, dizziness, CP, or SOB. Lochia decreasing. with minimal support. Objective Data Objective Data Vital Signs: Vital Signs Temp Pulse Resp BP Pulse Ox O2 Del Method 97.6 F L 69 15 112/72 100 Room Air 07/01/23 04:10 07/01/23 04:10 07/01/23 04:10 07/01/23 04:10 07/01/23 04:10 07/01/23 04:10 Oxygen Delivery Method Room Air Weight: 142 lb 9.6 oz Body Mass Index (BMI) 24.5 Intake & Output: Intake and Output for Last 24 Hours 06/29/23 06/30/23 07/01/23 23:59 23:59 23:59 Intake Total 1360 / 1360 Output Total 700 / 700 400 / 400 Balance 660 / 660 -400 / -400 Lab / Micro Data Attestation: I reviewed the patient's lab results. 07/01/23 04:10 Labs: Laboratory Results - last 24 hr 06/30/23 10:55: WBC 8.7, RBC 3.57 L, Hgb 11.5 L, Hct 34.4 L, MCV 96.4, MCH 32.2 H, MCHC 33.4, RDW Std Deviation 46.9 H, RDW Coeff of Paresh 13.4, Plt Count 153, MPV 10.8, Immature Gran % (Auto) 0.600, Neut % (Auto) 75.6 H, Lymph % (Auto) 15.6 L, [place] % (Auto) 6.1, Eos % (Auto) 1.4, Baso % (Auto) 0.7, Absolute Neuts (auto) 6.6, Absolute Lymphs (auto) 1.35, Nucleated RBC % 0, Syphilis Total Ab Non-reactive, Blood Type A NEGATIVE, Antibody Screen POSITIVE, Antibody Identification ANTI-D 06/30/23 19:00: Screen NEGATIVE, Baby's Blood Type O POSITIVE, Baby's DIANE NEGATIVE 07/01/23 04:10: WBC 13.5 H, RBC 3.55 L, Hgb 11.5 L, Hct 34.5 L, MCV 97.2, MCH 32.4 H, MCHC 33.3, RDW Std Deviation 48.0 H, RDW Coeff of Paresh 13.3, Plt Count 133 L, MPV 10.3 ROS Eyes Eyes: Denies blurry vision, change in vision or spots in vision ENT HEENT: Denies dizziness or headache(s) Cardiovascular Cardiovascular: Denies abdominal pain, chest pain or dyspnea Respiratory/Chest Respiratory/Chest: Denies cough, dyspnea, shortness of breath at rest or shortness of breath with exertion Gastrointestinal Gastrointestinal: Denies abdominal pain, diarrhea or vomiting Genitourinary Genitourinary: Denies change in urinary stream, difficulty urinating or dysuria Musculoskeletal Musculoskeletal: Reports none Integumentary Integumentary: Denies rash Neurologic Neurologic: Denies dizziness, headache(s), memory loss or weakness Physical Exam Narrative Dressing is dry and intact. Two small spots of drainage that are outlined. Const alert and no apparent distress General Appearance: cooperative and comfortable Exam Limitations: no limitations HEENT normocephalic Eyes General Eye: normal appearance of both eyes Neck full ROM General: normal visual inspection Chest Chest: symmetrical chest wall rise Resp normal respiratory effort and normal air movement Effort and Inspection: symmetric chest movement Auscultation: clear to auscultation bilaterally Cardio regular rate and regular rhythm GI normal to inspection, nondistended, normoactive bowel sounds Back/Spine normal ROM Extremity full ROM and no calf tenderness General Extremity: normal exam except as noted Skin no rashes or lesions noted Neuro CN's II-XII intact bilaterally Psych mental status grossly normal Assessment & Plan (1) Post-operative pain: (2) Delivery by section: COMMENT: POD#1 (3) Anemia affecting : QUALIFIERS: Trimester: third trimester Qualified Code(s): O99.013 - Anemia complicating , third trimester (4) Previous delivery, antepartum: (5) Request for sterilization: PLAN: Plan POD 1 Repeat C/S HGB 11.5 Pain control Increase ambulation support Anticipate discharge home tomorrow
[2023-07-01 08:00] VITALS: BP 110/78; PULSE 74; RESP 20; TEMP 36.2; O2SAT 99
[2023-07-01] MEDS: Senna/Docusate Sodium 1 Tablet PO (10:17)
[2023-07-01 13:15] VITALS: BP 111/61; PULSE 78; RESP 16; TEMP 36.6; O2SAT 97
[2023-07-01] MEDS: Ibuprofen 600 MG Tablet PO ×2 (14:07→20:15)
--- NOTE | 2023-07-01 16:39 | CASEMGMT ---
Social Work Labor and Delivery Sw informed of social work consult due to maternal history of PPD and anxiety. Sw presented to bedside and introduced self to MOB and FOB. MOB had other family members visiting and stated that it was ok to complete assessment with visitors present. Sw completed psychosocial assessment, provided education and support. MOB completed [place] Depression Scale. MOB receptive to support and information provided. OK for MOB and baby to be discharged when medically ready. Sw to submit completed psychosocail assessment at later date. Pelon Srivastava, BODY LINE FINISHER, X RAY PHYSICIAN
[2023-07-01] MEDS: oxyCODONE 5 MG Tablet PO ×2 (19:34→23:44)
[2023-07-01 19:56] VITALS: BP 102/71; PULSE 68; RESP 16; TEMP 36.1; O2SAT 98
[2023-07-02] MEDS: Ibuprofen 600 MG Tablet PO ×2 (02:02→08:03)
[2023-07-02 02:03] VITALS: BP 124/70; PULSE 78; RESP 15; TEMP 36.1; O2SAT 98
[2023-07-02] MEDS: oxyCODONE 5 MG Tablet PO ×3 (04:56→12:52)
[2023-07-02] MEDS: Acetaminophen 500 MG Tablet 1000 MG PO ×2 (06:02→11:57)
[2023-07-02 07:45] VITALS: BP 116/74; PULSE 74; RESP 16; TEMP 36.1
--- NOTE | 2023-07-02 09:38 | PCM.PN.BLA ---
Progress Note Pain well controlled. Average lochia. Passing flatus no bowel movement yet. Urinating and ambulating without difficulty. Tolerating regular diet. Physical Exam Const alert General Appearance: cooperative GI GI Narrative: soft, moderate distention, fundus firm, appropriately tender. Abdominal bandage clean dry and intact Assessment & Plan Assessment/Plan (1) Delivery by section: PLAN: Postoperative day #2 status post repeat section and tubal. Patient is doing well. Desires discharge home.
--- NOTE | 2023-07-02 09:40 | PCM.DC.SUM ---
Providers Date of Admission: 06/30/23 Primary Care Physician: JESSI Sharp Reason For Visit: REPEAT CSECTION Diagnosis Discharge Diagnosis (1) Delivery by section: Status: Acute Plan: Postoperative day #2 status post repeat section and tubal. Patient is doing well. Desires discharge home. Medications at Discharge Home Medications 1 tab 04/05/21 ferrous sulfate 325 mg (65 mg iron) tablet (Iron (ferrous sulfate)) 325 mg PO QODAY anemia 04/05/21 sertraline 50 mg tablet mg depression 06/30/23 ibuprofen 600 mg tablet 600 mg PO Q6H PRN Pain 20 days #60 TABLETS 07/02/23 oxycodone 5 mg tablet 5 mg PO Q8 PRN pain 7 days #21 TABLETS 07/02/23 Hospital Course Operations - (Repeat low transverse section with bilateral salpingectomy performed on 06/30/2023) Procedures None Summary of Care Provided Minutes Spent on Discharge: 16 Hospital Course: 32-year-old multigravida female with previous section admitted on 06/30/2023 for repeat section. This was performed without difficulty. She had a bilateral salpingectomy for sterilization. By postoperative day #2 she was ambulating, urinating tolerating regular diet and oral pain medication without difficulty. She was discharged home with routine instructions and follow-up. Weight / BMI Weight Weight: 64.682 kg Body Mass Index (BMI) 24.5 ABG / Lab / Microbiology Data 07/01/23 04:10 D/C Instructions Discharge Diet: No restrictions May resume sexual activity in: 4-6 weeks Lifting Restrictions: 20 pounds Additional Activity Instructions: Nothing in the vagina for 4-6 weeks. You may return to work/school in 6 weeks. Call your doctor if your incision/area has: Continuous Slow Oozing, Sudden Increased Bleeding, Increased Pain/ Swelling, Increased Redness and Foul Smelling Discharge Call your doctor if you observe: Fever of 101 or Higher and Using more than 1 pad per hour (for 2 hours) Suture Line Care: Avoid Pulling/Pushing and Avoid Pinching/Bending Cleanse incision/area with: Keep Dressing Clean & Dry Please Follow Up With: Kristie Torres MD When: Call to make an appointment for an incision check in 1-2 [phone]. You will need a post check in 6 weeks. Meaningful Use Info Meaningful Use Diagnoses (Choose all that apply): None applicable Discharge Plan Admission Admit Date/Time: 06/30/23 09:31 Primary Reason for Your Visit: Repeat section and tubal sterilization Attending Provider: Carmel Spann Primary Care Provider: Prakash Sanchez Discharge Orders/Prescriptions Prescriptions: New ibuprofen [ibuprofen] 600 mg tablet 600 mg PO Q6H PRN (Reason: Pain) 20 Days Qty: 60 1RF oxycodone 5 mg tablet 5 mg PO Q8 PRN (Reason: pain) 7 Days Qty: 21 0RF No Action ferrous sulfate [Iron (ferrous sulfate)] 325 mg (65 mg iron) Tablet 325 mg PO QODAY 1 tab sertraline 50 mg tablet Referrals / Follow Up: Prakash Sanchez, PA [Primary Care Provider] - Disposition Disposition (needs filled in before D/C Order can be placed): Home, Self Care
[2023-07-02] MEDS: Senna/Docusate Sodium 1 Tablet PO (09:52)
[2023-07-04 04:37] LABS: Pathology Specimen OB SEE PATHOLOGY REPORT
--- NOTE | 2023-07-06 15:51 | CASEMGMT ---
Social Work Assessment Labor and Delivery Unit Patient Address: [address] [place] [address] Phone number: [phone] Date of Referral: 06/30/23 Time of Referral:? 0830 Referred By: charge nurse, bedside nursing staff. Date of Intervention: ??07/01/23 Time of Intervention:? 1320 Reason for Referral:? anxiety, depression, PPD Sw completed chart review. Sw presented to bedside and introdued self to mother of baby (MEDINA- Rachael). Sw explained reason for sw involvement, completed psychosocial assessment and asked MOB to complete an [place] Depression Scale. History obtained from: medical records and mother of baby (MOB)??? Household composition: MOB states that currently residing at home is herself, father of baby (DANIEL Luna), their first son and now baby boy. MOB states that housing is safe and adequate. No housing concerns at this time. Patient's parent/guardian status:?MOB states that she and FOB met through mutual friends and have been together for 10 years. MOB states that there are no concerns regarding domestic violence or intimate partner violence at home. This is second child for MOB, and third for FOB. MOB states that she and FOB split up for a period of time, during which FOB had a child with someone else. MOB states that parents worked through their differences and got back together. Medical History: MEDINA is 2, para 1- now 2. MOB received routine care during with [facility]. Baby boy was born via repeat at 39 weeks gestation. Baby boy, named Jeremy, was born weighing 6lb 8oz and his apgars were 9 and 9 at one and five minutes of life respectfully. Baby will be followed by Dr. Green for pediatrics. Educational Status:?Both parents graduated from high school and obtained college degrees. Financial Status: Both parents are gainfully employed outside of the home. FOB is an build and deployment engineer and MOB is a nurse. Infant Supplies:??Parents have obtained all necessary baby supplies, including: car seat, safe sleep space, clothes, diapers, wipes and a breast pump. Childcare/Caregiver(s):? When both parents are at work they have arranged childcare with family members. Transportation:?? Both parents have their drivers license and reliable transportation. No barriers to transportation at this time. Programs/Agencies Involved: Parents deny linkage to community resources at this time. ??? Children Services/Legal Issues:??? No former involvement with Children Services, no issues or concerns warranting a referral at this time. Behavioral Health Issues: ??Mental Health History: MEDINA states that she has a history of anxiety and depression and did experience depression following the of her first son. Sw educated parents on signs and symptoms of baby blues and depression. MOB completed [place] Depression Scale, her score was a 2. Sw provided education and MOB was receptive. MOB stated that she believes a lot of her was a result of a traumatic delivery and struggling to breastfeed. ??? Substance Use History:?MOB denies substance use prior to and during . ? Family History:?MOB denies family history of mental health and substance use. ? Drug Screens: No urine screens observed in chart review. ? Family/Social Stressors:?MOB denies stressors or concerns at this time. Support Systems: Parents state that they have a lot of supports found in family members and friends. Depression/Shaken Baby/Safe Sleeping: ?Sw educated parents on signs and symptoms of baby blues and depression/anxiety. Parents expressed understanding. Sw educated parents on shaken baby prevention and ABCs of safe sleep. Parents expressed understanding. ASSESSMENT:? Parents were present with other family members who were visiting, MEDINA said it was ok to continue with assessment while her parents were also at bedside. MOB appeared slightly overwhelmed, but engaged appropriately with sw during assessment. MOB engaged with sw and answered questions asked. Parents were observed to provide safe and loving hands on care to baby. PLAN:? MOB and baby discharged when medically appropriate ?No other services requested or indicated Pelon Srivastava, PHP WEBSITE DEVELOPER, BRANCH SERVICES MANAGER
== END 2023-07-02 13:43 | disposition home or self-care (01) | DRG 785 ==
PROVIDERS: Obstetrics & Gynecology; Admitting Provider Obstetrics & Gynecology; PCP Physician Assistant; Referring Provider Obstetrics & Gynecology; Visit Provider Obstetrics & Gynecology
PROC: 10D00Z1 Extraction of Products of Conception, Low, Open Approach (ICD-10-PCS; CPT 59514; principal; 2023-06-30 11:45)
DX: O34.211 Maternal care for low transverse scar from previous cesarean delivery (principal); O99.02 Anemia complicating childbirth; Z30.2 Encounter for sterilization; Z37.0 Single live birth; Z3A.39 39 weeks gestation of pregnancy
CPT/HCPCS: 59025; 59050; 85025; 85027; 85461; 86780; 86850; 86870; 86900; 86901; 88302; 99221; J7120; A4216; G0378; J2790